=== PATIENT | male | born 1980 | race Two or more races ===

== ENCOUNTER 2016-08-21 08:32 | Inpatient (IN) | payer MEDICAID ==
[~2016-08-21] VITALS: Ht 182.9 cm; Wt 69.6 kg
[~2016-08-21 08:32] MED LIST: GAB400C PO; GLIP-115 PO; METF-316 PO
[2016-08-21] MEDS ORDERED: SODIUM CHLORIDE 0.9% 1,000 ML IVB ONE (09:11)
[2016-08-21] MEDS ORDERED: MORPHINE SULFATE 4 MG/ML SYRG IV ONE (09:15)
[2016-08-21] MEDS ORDERED: ONDANSETRON HCL 4 MG/2 ML VIAL IV ONE (09:15)
[2016-08-21 11:02] LABS: Albumin 4.2 g/dL (3.4-5.0); BUN/Creatinine Ratio 24.6; Bilirubin, Total 0.4 mg/dL (0.2-1.0); Calcium 8.9 mg/dL (8.5-10.1); Potassium 3.6 mmol/L (3.5-5.1); Total Protein 7.2 g/dL (6.4-8.2)
[2016-08-21 11:12] LABS: Basophils # (auto) 0 uL; Basophils % (auto) 0.5 % (0.0-2.0); Eosinophils # (auto) 0 uL; Hematocrit 40.5 % (41.0-53.0); Hemoglobin 13.4 g/dL (13.5-17.5); Lymphocytes # (auto) 0.7 uL; Lymphocytes % (auto) 7.6 % (10.0-50.0); Mean Corpuscular Volume 90.6 fL (80.0-100.0); Mean Platelet Volume 7.8 fL (7.4-10.4); Monocytes # (auto) 0.3 uL; Monocytes % (auto) 3.3 % (0.0-12.0); Neutrophils # (auto) 8.3 uL; Neutrophils % (auto) 88.6 % (37.0-80.0); Platelet Count (auto) 285 10^3/uL (140-450); Red Cell Distribution Width 12.4 % (11.6-16.0); White Blood Cell 9.3 10^3/uL (4.4-10.8)
[2016-08-21] MEDS ORDERED: KETOROLAC TROMETH 30 MG/ML 1ML VIAL IV ONE (11:15)
[2016-08-21] MEDS ORDERED: LORazepam 2MG/ML-1ML VIAL IV ONE (11:15)
[2016-08-21 11:49] LABS: Urine RBC None Seen /hpf (0 - 3)
[2016-08-21 12:32] LABS: Urine Bilirubin Negative (Negative); Urine Blood Negative /uL (Negative); Urine Color Yellow (Yellow); Urine Nitrite Negative (Negative); Urine Urobilinogen Normal (Negative); Urine pH 6.5 (5.0-8.0)
[2016-08-21 12:34] LABS: Urine Glucose 3+ mg/dL (Normal); Urine Ketone 3+ (Negative)
[2016-08-21] MEDS ORDERED: PIPERACILLIN-TAZOB 3.375GM 100 ML IV ONE (12:45)
[2016-08-21] MEDS ORDERED: metroNIDAZOLE 500MG/100ML 100 ML IV ONE (12:45)
[2016-08-21] MEDS ORDERED: PANTOPRAZOLE SODIUM 40 MG/10 ML VIAL IV ONE (13:00)
[2016-08-21] MEDS ORDERED: DEXTROSE (50%) 50ML SYRG IV PRN (13:45)
[2016-08-21 13:56] LABS: Lactic Acid 2.3 mmol/L (0.4-2.0)
[2016-08-21] MEDS ORDERED: TEMAZEPAM 15 MG CAP PO PRN (14:00)
[2016-08-21] MEDS ORDERED: MORPHINE SULF INJ 2 MG/ML SYRINGE 1ML IV PRN (14:00)
[2016-08-21] MEDS ORDERED: ACETAMINOPHEN 325 MG TAB PO PRN (14:00)
[2016-08-21] MEDS ORDERED: FAMOTIDINE (10MG/ML) 2ML VL IV ONE (14:00)
[2016-08-21] MEDS ORDERED: NITROGLYCERIN 0.4 MG SL TAB SL PRN (14:00)
[2016-08-21] MEDS ORDERED: DOCUSATE SOD 100 MG CAP PO PRN (14:00)
[2016-08-21 14:25] LABS: REFLEX LACTIC ACID YES OR NO YES
[2016-08-21] MEDS: MULTIPLE VITAMIN TAB PO SCH (15:27)
[2016-08-21] MEDS: DICYCLOMINE HCL 10 MG CAP PO SCH ×2 (15:27→21:11)
[2016-08-21] MEDS: SODIUM CHLORIDE 0.9% 1,000 ML IV SCH (15:27)
[2016-08-21] MEDS: busPIRone HCL 10 MG TAB PO SCH ×2 (15:27→21:11)
[2016-08-21 17:20] LABS: INR 1.05 (0.9-1.15); Prothrombin Time 10.8 sec (9.37-12.3)
[2016-08-21] MEDS: InsuLIN REG 1unit/0.01ml Soln (100units/ml) SC SCH ×2 (18:29→21:24)
[2016-08-21] MEDS: ACCU-CHEK COMFORT CURVE STRIP VI SCH ×2 (18:29→21:24)
[2016-08-21] MEDS: metFORMIN HYDROCHLORIDE 500 MG TAB PO SCH (18:32)
[2016-08-21] MEDS: METOCLOPRAMIDE HCL 10 MG TAB PO SCH ×2 (18:32→21:11)
[2016-08-21 18:56] LABS: Hematocrit 37.3 % (41.0-53.0); Hemoglobin 12.3 g/dL (13.5-17.5)
[2016-08-21] MEDS: MORPHINE SULF INJ 2 MG/ML SYRINGE 1ML IV PRN (19:29)
[2016-08-21] MEDS: ONDANSETRON HCL 4 MG/2 ML VIAL IV PRN (19:29)
[2016-08-21 20:30] VITALS: BP 159/84
[2016-08-21] MEDS: PANTOPRAZOLE SODIUM 40 MG/10 ML VIAL IV SCH (21:11)
[2016-08-21] MEDS: traZODone HCL 50 MG TAB PO SCH (21:11)
[2016-08-21] MEDS: HYDROcodone-ACET 5/325MG TAB PO PRN (21:24)
[2016-08-21 22:00] VITALS: BP 159/84
[2016-08-21] MEDS ORDERED: NORTRIPTYLINE HCL 10 MG CAP PO SCH (22:00)
[2016-08-21] MEDS ORDERED: FAMOTIDINE (10MG/ML) 2ML VL IV SCH (22:00)
[2016-08-22] MEDS: MORPHINE SULF INJ 2 MG/ML SYRINGE 1ML IV PRN ×2 (01:37→05:47)
[2016-08-22] MEDS: ONDANSETRON HCL 4 MG/2 ML VIAL IV PRN ×2 (01:37→05:48)
[2016-08-22] MEDS ORDERED: TRAZ50TA2 PO (03:14)
[2016-08-22] MEDS ORDERED: BUSP7.5T4 PO (03:14)
[2016-08-22] MEDS ORDERED: RANI150C11 PO (03:14)
[2016-08-22] MEDS ORDERED: [UNRECOGNIZED DRUG - CODE] PO (03:14)
[2016-08-22] MEDS ORDERED: DICY10CA55 PO (03:14)
[2016-08-22] MEDS ORDERED: NORT25CA PO (03:14)
[2016-08-22] MEDS: HYDROcodone-ACET 5/325MG TAB PO PRN (04:58)
[2016-08-22 05:30] VITALS: BP 149/94
[2016-08-22] MEDS: DICYCLOMINE HCL 10 MG CAP PO SCH ×3 (05:47→22:20)
[2016-08-22] MEDS: METOCLOPRAMIDE HCL 10 MG TAB PO SCH (05:47)
[2016-08-22] MEDS: busPIRone HCL 10 MG TAB PO SCH ×3 (05:47→22:20)
[2016-08-22] MEDS: ACCU-CHEK COMFORT CURVE STRIP VI SCH ×3 (06:30→22:21)
[2016-08-22 06:40] LABS: Basophils # (auto) 0 uL; Basophils % (auto) 0.3 % (0.0-2.0); Eosinophils # (auto) 0 uL; Eosinophils % (auto) 0.1 % (0.0-7.0); Hematocrit 38.1 % (41.0-53.0); Hemoglobin 12.4 g/dL (13.5-17.5); Lymphocytes # (auto) 1.9 uL; Lymphocytes % (auto) 14.3 % (10.0-50.0); Mean Corpuscular Hemoglobin 29.7 pg (28.0-32.0); Mean Corpuscular Hgb Conc. 32.7 g/dL (32.0-36.0); Mean Corpuscular Volume 90.9 fL (80.0-100.0); Mean Platelet Volume 7.9 fL (7.4-10.4); Monocytes % (auto) 7.8 % (0.0-12.0); Neutrophils # (auto) 10.1 uL; Neutrophils % (auto) 77.5 % (37.0-80.0); Platelet Count (auto) 296 10^3/uL (140-450); Red Cell Distribution Width 13.3 % (11.6-16.0); White Blood Cell 13.1 10^3/uL (4.4-10.8)
[2016-08-22] MEDS: metFORMIN HYDROCHLORIDE 500 MG TAB PO SCH ×2 (07:00→18:00)
[2016-08-22] MEDS: InsuLIN REG 1unit/0.01ml Soln (100units/ml) SC SCH ×3 (07:00→22:28)
[2016-08-22 07:04] LABS: Calcium 8.7 mg/dL (8.5-10.1); Potassium 3.2 mmol/L (3.5-5.1)
[2016-08-22 07:06] LABS: Albumin 4.1 g/dL (3.4-5.0); BUN/Creatinine Ratio 15.9
[2016-08-22 07:09] LABS: Bilirubin, Total 0.8 mg/dL (0.2-1.0); Total Protein 7.1 g/dL (6.4-8.2)
[2016-08-22] MEDS ORDERED: fentaNYL CITRATE 100 MCG/2 ML VL ONE (08:26)
[2016-08-22] MEDS ORDERED: SODIUM CHLORIDE LOCK 10 ML ONE (08:26)
[2016-08-22] MEDS ORDERED: diphenhdrAMINE HCL 50 MG/1 ML VL ONE (08:26)
[2016-08-22] MEDS ORDERED: LIDOCAINE VISCOUS 2% 15ML UD ONE (08:26)
[2016-08-22] MEDS ORDERED: MIDAZOLAM HCL 5 MG/ML-1ML VIAL ONE (08:26)
[2016-08-22 09:00] VITALS: BP 124/89
[2016-08-22] MEDS ORDERED: PROMETHAZINE HCL 25 MG/ML 1ML ONE (09:39)
[2016-08-22] MEDS: PANTOPRAZOLE SODIUM 40 MG/10 ML VIAL IV SCH (09:56)
[2016-08-22] MEDS: PROMETHAZINE HCL 25 MG/ML 1ML IV PRN ×2 (09:56→15:10)
[2016-08-22] MEDS: MULTIPLE VITAMIN TAB PO SCH (10:05)
[2016-08-22] MEDS: SODIUM CHLORIDE 0.9% 1,000 ML IV SCH ×2 (11:51→23:22)
[2016-08-22 13:00] VITALS: BP 151/104
[2016-08-22] MEDS: METOCLOPRAMIDE HCL 5MG/ml INJ 2ml VIAL IV SCH ×2 (13:33→22:20)
[2016-08-22 15:00] VITALS: BP 127/82
[2016-08-22] MEDS: HYDROmorphone HCL 2 MG/ML VL IV PRN ×3 (16:27→23:32)
[2016-08-22 22:00] VITALS: BP 105/74
[2016-08-22] MEDS: traZODone HCL 50 MG TAB PO SCH (22:20)
[2016-08-23] MEDS: HYDROmorphone HCL 2 MG/ML VL IV PRN ×6 (02:30→21:29)
[2016-08-23 05:30] VITALS: BP 134/70
[2016-08-23] MEDS: busPIRone HCL 10 MG TAB PO SCH ×3 (05:54→21:28)
[2016-08-23] MEDS: metFORMIN HYDROCHLORIDE 500 MG TAB PO SCH ×2 (05:55→18:00)
[2016-08-23] MEDS: ACCU-CHEK COMFORT CURVE STRIP VI SCH ×4 (05:55→22:12)
[2016-08-23] MEDS: DICYCLOMINE HCL 10 MG CAP PO SCH ×3 (05:55→21:28)
[2016-08-23] MEDS: InsuLIN REG 1unit/0.01ml Soln (100units/ml) SC SCH ×4 (06:19→22:21)
[2016-08-23 06:20] LABS: Basophils # (auto) 0 uL; Basophils % (auto) 0.5 % (0.0-2.0); Eosinophils # (auto) 0 uL; Eosinophils % (auto) 0.1 % (0.0-7.0); Hematocrit 33.9 % (41.0-53.0); Lymphocytes # (auto) 1.6 uL; Mean Corpuscular Hemoglobin 29.8 pg (28.0-32.0); Mean Corpuscular Hgb Conc. 32.4 g/dL (32.0-36.0); Mean Platelet Volume 7.9 fL (7.4-10.4); Monocytes # (auto) 0.9 uL; Monocytes % (auto) 9.3 % (0.0-12.0); Neutrophils # (auto) 6.8 uL; Neutrophils % (auto) 73.1 % (37.0-80.0); Platelet Count (auto) 257 10^3/uL (140-450); Red Cell Distribution Width 13.1 % (11.6-16.0); White Blood Cell 9.3 10^3/uL (4.4-10.8)
[2016-08-23 06:36] LABS: Albumin 3.5 g/dL (3.4-5.0); Calcium 8.2 mg/dL (8.5-10.1)
[2016-08-23 06:41] LABS: Bilirubin, Total 0.6 mg/dL (0.2-1.0); Total Protein 6.2 g/dL (6.4-8.2)
[2016-08-23 08:48] VITALS: BP 134/87
[2016-08-23] MEDS: MULTIPLE VITAMIN TAB PO SCH (10:16)
[2016-08-23] MEDS: METOCLOPRAMIDE HCL 5MG/ml INJ 2ml VIAL IV SCH ×2 (10:16→21:28)
[2016-08-23] MEDS: PROMETHAZINE HCL 25 MG/ML 1ML IV PRN (10:16)
[2016-08-23] MEDS: PANTOPRAZOLE 40 MG TAB PO SCH (10:17)
[2016-08-23 11:51] VITALS: BP 130/79
[2016-08-23 16:29] VITALS: BP 138/89
[2016-08-23] MEDS: SODIUM CHLORIDE 0.9% 1,000 ML IV SCH (16:54)
[2016-08-23] MEDS: ONDANSETRON HCL 4 MG/2 ML VIAL IV PRN (18:06)
[2016-08-23] MEDS: HYDROcodone-ACET 5/325MG TAB PO PRN (20:09)
[2016-08-23] MEDS: traZODone HCL 50 MG TAB PO SCH (21:30)
[2016-08-23 21:52] VITALS: BP 140/95
[2016-08-24] MEDS: HYDROmorphone HCL 2 MG/ML VL IV PRN ×7 (00:24→21:20)
[2016-08-24 05:34] VITALS: BP 133/84
[2016-08-24] MEDS: busPIRone HCL 10 MG TAB PO SCH ×3 (06:02→21:21)
[2016-08-24] MEDS: DICYCLOMINE HCL 10 MG CAP PO SCH ×3 (06:02→21:21)
[2016-08-24] MEDS: metFORMIN HYDROCHLORIDE 500 MG TAB PO SCH ×2 (06:03→17:58)
[2016-08-24] MEDS: InsuLIN REG 1unit/0.01ml Soln (100units/ml) SC SCH ×4 (06:28→21:20)
[2016-08-24] MEDS: ACCU-CHEK COMFORT CURVE STRIP VI SCH ×4 (06:28→21:20)
[2016-08-24] MEDS: SODIUM CHLORIDE 0.9% 1,000 ML IV SCH ×2 (07:38→21:22)
[2016-08-24 08:30] VITALS: BP 137/87
[2016-08-24] MEDS: PANTOPRAZOLE 40 MG TAB PO SCH (09:11)
[2016-08-24] MEDS: METOCLOPRAMIDE HCL 5MG/ml INJ 2ml VIAL IV SCH ×2 (09:11→21:22)
[2016-08-24] MEDS: MULTIPLE VITAMIN TAB PO SCH (09:11)
[2016-08-24 13:30] VITALS: BP 138/95
[2016-08-24 16:36] VITALS: BP 150/103
[2016-08-24] MEDS: traZODone HCL 50 MG TAB PO SCH (21:21)
[2016-08-24 22:00] VITALS: BP 147/96
[2016-08-25] MEDS: HYDROmorphone HCL 2 MG/ML VL IV PRN ×4 (00:33→12:50)
[2016-08-25 05:32] VITALS: BP 139/92
[2016-08-25] MEDS: DICYCLOMINE HCL 10 MG CAP PO SCH ×2 (06:10→14:21)
[2016-08-25] MEDS: busPIRone HCL 10 MG TAB PO SCH ×2 (06:10→14:21)
[2016-08-25] MEDS: ACCU-CHEK COMFORT CURVE STRIP VI SCH ×2 (06:11→11:30)
[2016-08-25] MEDS: metFORMIN HYDROCHLORIDE 500 MG TAB PO SCH (06:46)
[2016-08-25] MEDS: InsuLIN REG 1unit/0.01ml Soln (100units/ml) SC SCH ×2 (06:51→11:30)
[2016-08-25] MEDS: PROMETHAZINE HCL 25 MG/ML 1ML IV PRN (06:52)
[2016-08-25 07:30] VITALS: BP 150/69
[2016-08-25] MEDS: METOCLOPRAMIDE HCL 5MG/ml INJ 2ml VIAL IV SCH (09:49)
[2016-08-25] MEDS: MULTIPLE VITAMIN TAB PO SCH (09:49)
[2016-08-25] MEDS: PANTOPRAZOLE 40 MG TAB PO SCH (09:49)
[2016-08-25 11:30] VITALS: BP 133/94
[2016-08-25 15:15] VITALS: BP 133/82
== END 2016-08-25 15:37 | disposition home or self-care (01) | DRG 241 ==
LOC: EDBD 08:32 → ER 08:32 → EDUNIT# 08:32 → TELE 08:33 → TELE-WESTW 20:10 → WEST WING 08-24 05:44
PROVIDERS: ADMIT Internal Medicine; ATTEND Internal Medicine
PROC: 0DJ08ZZ Inspection of Upper Intestinal Tract, Via Natural or Artificial Opening Endoscopic (ICD-10-PCS; principal; 2016-08-22 12:08)
DX: K29.00 Acute gastritis without bleeding (principal); K92.0 Hematemesis; K31.84 Gastroparesis; E11.43 Type 2 diabetes mellitus with diabetic autonomic (poly)neuropathy; K27.9 Peptic ulcer, site unspecified, unspecified as acute or chronic, without hemorrhage or perforation; I10 Essential (primary) hypertension; D63.8 Anemia in other chronic diseases classified elsewhere; F32.9 Major depressive disorder, single episode, unspecified; F41.9 Anxiety disorder, unspecified; N20.0 Calculus of kidney; F12.90 Cannabis use, unspecified, uncomplicated; Z90.49 Acquired absence of other specified parts of digestive tract; Z79.899 Other long term (current) drug therapy
CPT/HCPCS: 36415; 43235; 74176; 80053; 81001; 82150; 82962; 83036; 83605; 83690; 84484; 85014; 85018; 85025; 85610; 87040; 96361; 96365; 96366; 96368; 96375; C9113; J1815; J1885; J2250; J2405; J2543; J3490

== ENCOUNTER 2016-09-24 04:26 | Inpatient (IN) | payer MEDICAID ==
[~2016-09-24] VITALS: Ht 182.9 cm; Wt 68.0 kg
[~2016-09-24 04:26] MED LIST changes: +BUSP7.5T4 PO; +DICY10CA55 PO; +NORT25CA PO; +RANI150C11 PO; +TRAZ50TA2 PO; +[UNRECOGNIZED DRUG - CODE] PO
[2016-09-24 06:25] LABS: Hematocrit 45.4 % (41.0-53.0); Hemoglobin 14.8 g/dL (13.5-17.5); Mean Corpuscular Hgb Conc. 32.5 g/dL (32.0-36.0); Mean Corpuscular Volume 92.2 fL (80.0-100.0); Mean Platelet Volume 8.5 fL (7.4-10.4); Platelet Count (auto) 313 10^3/uL (140-450); Red Cell Distribution Width 12.6 % (11.6-16.0); SUSPECT VIEW TRANSMISSION; White Blood Cell 19.5 10^3/uL (4.4-10.8)
[2016-09-24 06:33] LABS: Metamyelocytes % 0; Myelocytes % 0; Promyelocytes % 0; Reactive Lymphocytes 0
[2016-09-24 06:51] LABS: BUN/Creatinine Ratio 21.5; Bilirubin, Total 0.6 mg/dL (0.2-1.0); Calcium 9.8 mg/dL (8.5-10.1); Potassium 3.7 mmol/L (3.5-5.1); Total Protein 8.7 g/dL (6.4-8.2)
[2016-09-24] MEDS ORDERED: InsuLIN REG 1unit/0.01ml Soln (100units/ml) IV ONE (07:45)
[2016-09-24] MEDS ORDERED: PANTOPRAZOLE SODIUM 40 MG/10 ML VIAL IV ONE (07:45)
[2016-09-24] MEDS ORDERED: ONDANSETRON HCL 4 MG/2 ML VIAL IV ONE (07:45)
[2016-09-24] MEDS ORDERED: HYDROmorphone HCL 2 MG/ML VL IV ONE (07:45)
[2016-09-24] MEDS ORDERED: SODIUM CHLORIDE 0.9% 1,000 ML IV ONE (07:45)
[2016-09-24] MEDS ORDERED: cefTRIAXone 1GM/50ML D5W 50 ML IV ONE (08:00)
[2016-09-24 08:16] LABS: Platelet Estimate Adequate; RBC Morphology Normal
[2016-09-24] MEDS ORDERED: metFORMIN HYDROCHLORIDE 500 MG TAB PO ONE (10:30)
[2016-09-24] MEDS ORDERED: ACETAMINOPHEN 325 MG TAB PO PRN (10:30)
[2016-09-24] MEDS ORDERED: TEMAZEPAM 15 MG CAP PO PRN (10:30)
[2016-09-24] MEDS ORDERED: HYDROcodone-ACET 5/325MG TAB PO PRN (10:30)
[2016-09-24] MEDS ORDERED: DOCUSATE SOD 100 MG CAP PO PRN (10:30)
[2016-09-24] MEDS ORDERED: DEXTROSE (50%) 50ML SYRG IV PRN (10:30)
[2016-09-24] MEDS: SODIUM CHLORIDE 0.9% 1,000 ML IV SCH ×2 (10:34→20:11)
[2016-09-24] MEDS: DICYCLOMINE HCL 10 MG CAP PO SCH ×2 (10:43→16:41)
[2016-09-24] MEDS: FAMOTIDINE 20 MG TAB PO SCH ×2 (10:43→21:11)
[2016-09-24] MEDS: ACCU-CHEK COMFORT CURVE STRIP VI SCH ×3 (11:30→22:00)
[2016-09-24] MEDS: InsuLIN REG 1unit/0.01ml Soln (100units/ml) SC SCH ×2 (11:30→17:00)
[2016-09-24] MEDS: METOCLOPRAMIDE HCL 5MG/ml INJ 2ml VIAL IV SCH ×2 (12:00→18:00)
[2016-09-24] MEDS: MORPHINE SULF INJ 2 MG/ML SYRINGE 1ML IV PRN ×3 (12:48→21:14)
[2016-09-24] MEDS: ONDANSETRON HCL 4 MG/2 ML VIAL IV PRN ×2 (12:49→21:08)
[2016-09-24] MEDS: GABAPENTIN 300 MG CAP PO SCH ×2 (14:00→21:11)
[2016-09-24 15:30] VITALS: BP 149/89
[2016-09-24] MEDS: metFORMIN HYDROCHLORIDE 500 MG TAB PO SCH (16:41)
[2016-09-24] MEDS: glipiZIDE 5 MG TAB PO SCH (18:00)
[2016-09-24] MEDS: busPIRone HCL 10 MG TAB PO SCH (21:09)
[2016-09-24] MEDS: DONNATAL 5ml ORAL Elix (BELLADONNA ALK-PHENOBARB) PO SCH (21:31)
[2016-09-24 22:00] VITALS: BP 113/64
[2016-09-24] MEDS ORDERED: InsuLIN REG 1unit/0.01ml Soln (100units/ml) SC SCH (22:00)
[2016-09-24] MEDS ORDERED: NORTRIPTYLINE HCL 10 MG CAP PO SCH (22:00)
[2016-09-24] MEDS ORDERED: traZODone HCL 50 MG TAB PO SCH (22:00)
[2016-09-25] MEDS: METOCLOPRAMIDE HCL 5MG/ml INJ 2ml VIAL IV SCH ×3 (00:06→12:00)
[2016-09-25] MEDS: MORPHINE SULF INJ 2 MG/ML SYRINGE 1ML IV PRN ×3 (01:38→10:15)
[2016-09-25] MEDS: ONDANSETRON HCL 4 MG/2 ML VIAL IV PRN ×4 (01:38→10:15)
[2016-09-25] MEDS: SODIUM CHLORIDE 0.9% 1,000 ML IV SCH ×2 (03:08→11:30)
[2016-09-25 05:00] VITALS: BP 148/87
[2016-09-25] MEDS ORDERED: MORPHINE SULFATE 4 MG/ML SYRG ONE (05:25)
[2016-09-25] MEDS: DONNATAL 5ml ORAL Elix (BELLADONNA ALK-PHENOBARB) PO SCH ×2 (05:40→14:00)
[2016-09-25] MEDS: GABAPENTIN 300 MG CAP PO SCH ×2 (05:46→14:00)
[2016-09-25] MEDS: metFORMIN HYDROCHLORIDE 500 MG TAB PO SCH (06:32)
[2016-09-25] MEDS: DICYCLOMINE HCL 10 MG CAP PO SCH ×2 (06:32→11:31)
[2016-09-25] MEDS: glipiZIDE 5 MG TAB PO SCH (06:38)
[2016-09-25] MEDS: InsuLIN REG 1unit/0.01ml Soln (100units/ml) SC SCH ×2 (06:46→11:30)
[2016-09-25] MEDS: ACCU-CHEK COMFORT CURVE STRIP VI SCH ×3 (07:12→11:31)
[2016-09-25 07:44] LABS: Basophils # (auto) 0 uL; Basophils % (auto) 0.3 % (0.0-2.0); Eosinophils # (auto) 0 uL; Hematocrit 37.5 % (41.0-53.0); Hemoglobin 12.2 g/dL (13.5-17.5); Lymphocytes # (auto) 1.2 uL; Lymphocytes % (auto) 10.4 % (10.0-50.0); Mean Corpuscular Hgb Conc. 32.5 g/dL (32.0-36.0); Mean Corpuscular Volume 92.1 fL (80.0-100.0); Monocytes # (auto) 0.8 uL; Monocytes % (auto) 7.2 % (0.0-12.0); Neutrophils # (auto) 9.4 uL; Neutrophils % (auto) 82.1 % (37.0-80.0); Platelet Count (auto) 251 10^3/uL (140-450); Red Cell Distribution Width 12.5 % (11.6-16.0); White Blood Cell 11.4 10^3/uL (4.4-10.8)
[2016-09-25 08:00] LABS: Urine Bilirubin Negative (Negative); Urine Blood Negative /uL (Negative); Urine Color Yellow (Yellow); Urine Hyaline Cast FEW /lpf (0 - 2); Urine Mucus FEW (None Seen); Urine Nitrite Negative (Negative); Urine RBC 1 /hpf (0 - 3); Urine Squamous Epithelial Cell FEW /hpf (<5); Urine Urobilinogen Normal (Negative); Urine pH 5.5 (5.0-8.0)
[2016-09-25 08:01] LABS: Urine Glucose 4+ mg/dL (Normal); Urine Ketone 1+ (Negative)
[2016-09-25 08:26] LABS: BUN/Creatinine Ratio 23.7; Bilirubin, Total 0.5 mg/dL (0.2-1.0); Calcium 8.8 mg/dL (8.5-10.1); Potassium 3.6 mmol/L (3.5-5.1); Total Protein 6.9 g/dL (6.4-8.2)
[2016-09-25 09:00] VITALS: BP 120/89
[2016-09-25] MEDS ORDERED: PANTOPRAZOLE SODIUM 40 MG/10 ML VIAL IV SCH (10:00)
[2016-09-25] MEDS ORDERED: MULTIPLE VITAMIN TAB PO SCH (10:00)
[2016-09-25] MEDS: busPIRone HCL 10 MG TAB PO SCH (11:30)
[2016-09-25 12:09] VITALS: BP 120/89
[2016-09-25 13:00] VITALS: BP 109/84
== END 2016-09-25 16:45 | disposition home or self-care (01) | DRG 241 ==
LOC: ER 04:31 → OVERFLOW 04:32 → EAST 11:03 → WEST WING 15:46
PROVIDERS: ADMIT Internal Medicine; ATTEND Internal Medicine
DX: K29.70 Gastritis, unspecified, without bleeding (principal); E11.21 Type 2 diabetes mellitus with diabetic nephropathy; E11.65 Type 2 diabetes mellitus with hyperglycemia; K31.84 Gastroparesis; E87.1 Hypo-osmolality and hyponatremia; K27.9 Peptic ulcer, site unspecified, unspecified as acute or chronic, without hemorrhage or perforation; E86.0 Dehydration; N20.0 Calculus of kidney; F41.9 Anxiety disorder, unspecified; N18.2 Chronic kidney disease, stage 2 (mild); D72.829 Elevated white blood cell count, unspecified; E11.22 Type 2 diabetes mellitus with diabetic chronic kidney disease; I12.9 Hypertensive chronic kidney disease with stage 1 through stage 4 chronic kidney disease, or unspecified chronic kidney disease; K58.9 Irritable bowel syndrome, unspecified; K21.9 Gastro-esophageal reflux disease without esophagitis; Z90.49 Acquired absence of other specified parts of digestive tract; F12.10 Cannabis abuse, uncomplicated; F19.10 Other psychoactive substance abuse, uncomplicated
CPT/HCPCS: 36415; 71020; 74176; 80053; 81001; 82150; 82962; 83036; 83605; 83690; 84443; 85007; 85025; 85027; 87040; 87086; 96361; 96365; 96375; 99291; C9113; G0434; J0696; J1815; J2405

== ENCOUNTER 2017-02-25 14:08 | Emergency (ER) | payer MEDICAID ==
[~2017-02-25] VITALS: Ht 177.8 cm; Wt 77.1 kg
[~2017-02-25 14:08] MED LIST changes: -METF-316 PO; +METF-372 PO
[2017-02-25 14:50] LABS: Basophils # (auto) 0 uL; CONDITION Y; Eosinophils # (auto) 0 uL; Hematocrit 43.1 % (41.0-53.0); Hemoglobin 14.8 g/dL (13.5-17.5); Lymphocytes # (auto) 0.8 uL; Lymphocytes % (auto) 5.1 % (10.0-50.0); Mean Corpuscular Hgb Conc. 34.3 g/dL (32.0-36.0); Mean Corpuscular Volume 90.5 fL (80.0-100.0); Mean Platelet Volume 8.1 fL (7.4-10.4); Monocytes # (auto) 0.7 uL; Monocytes % (auto) 4.4 % (0.0-12.0); Neutrophils # (auto) 13.6 uL; Neutrophils % (auto) 90.5 % (37.0-80.0); Platelet Count (auto) 300 10^3/uL (140-450); Red Cell Distribution Width 12.5 % (11.6-16.0); White Blood Cell 15.1 10^3/uL (4.4-10.8)
[2017-02-25 15:09] LABS: Albumin 4.9 g/dL (3.4-5.0); BUN/Creatinine Ratio 27.9; Bilirubin, Total 0.6 mg/dL (0.2-1.0); Potassium 3.6 mmol/L (3.5-5.1); Total Protein 8.7 g/dL (6.4-8.2)
[2017-02-25] MEDS ORDERED: PROMETHAZINE HCL 25 MG/ML 1ML IM ONE (17:30)
[2017-02-25] MEDS ORDERED: SODIUM CHLORIDE 0.9% 2,000 ML IV ONE (17:30)
[2017-02-25] MEDS ORDERED: NALBUPHINE HCL 10 MG/1ml INJECTION IV ONE (17:30)
[2017-02-25] MEDS ORDERED: InsuLIN REG 1unit/0.01ml Soln (100units/ml) IV ONE (17:45)
[2017-02-25 18:34] VITALS: BP 153/99
== END 2017-02-25 19:53 | disposition home or self-care (01) ==
LOC: EDBD 14:08 → ER 14:08
DX: G43.A0 Cyclical vomiting, in migraine, not intractable (principal); K31.84 Gastroparesis; E11.9 Type 2 diabetes mellitus without complications; I10 Essential (primary) hypertension; F12.10 Cannabis abuse, uncomplicated; F15.10 Other stimulant abuse, uncomplicated; Z87.442 Personal history of urinary calculi
CPT/HCPCS: 36415; 80053; 82962; 85025; 96361; 96372; 96374; 96375; 99285; J2300; J2550

== ENCOUNTER 2017-09-08 07:47 | Emergency (ER) | payer MEDICAID ==
[~2017-09-08] VITALS: Ht 182.9 cm; Wt 83.9 kg
[2017-09-08 09:14] LABS: Basophils # (auto) 0.1 uL; Basophils % (auto) 0.7 % (0.0-2.0); Eosinophils # (auto) 0.1 uL; Eosinophils % (auto) 0.7 % (0.0-7.0); Hematocrit 39.6 % (41.0-53.0); Hemoglobin 13.4 g/dL (13.5-17.5); Lymphocytes # (auto) 1.3 uL; Lymphocytes % (auto) 16.7 % (10.0-50.0); Mean Corpuscular Hemoglobin 30.8 pg (28.0-32.0); Mean Corpuscular Hgb Conc. 33.9 g/dL (32.0-36.0); Mean Corpuscular Volume 90.9 fL (80.0-100.0); Monocytes # (auto) 0.7 uL; Monocytes % (auto) 8.6 % (0.0-12.0); Neutrophils # (auto) 5.7 uL; Neutrophils % (auto) 73.3 % (37.0-80.0); Platelet Count (auto) 300 10^3/uL (140-450); Red Blood Cells 4.36 10^6/uL (4.5-5.90); Red Cell Distribution Width 12.9 % (11.8-14.3); White Blood Cell 7.8 10^3/uL (4.4-10.8)
[2017-09-08 09:33] LABS: BUN/Creatinine Ratio 10.9; Potassium 3.3 mmol/L (3.5-5.1)
[2017-09-08 09:36] LABS: Bilirubin, Total 0.7 mg/dL (0.2-1.0); Total Protein 7.3 g/dL (6.4-8.2)
[2017-09-08] MEDS ORDERED: KETOROLAC TROMETH 60MG/2ML VIAL IM ONE (10:15)
[2017-09-08 10:53] VITALS: BP 148/95
[2017-09-08 10:57] LABS: Alcohol, Urine < 3.0 mg/dL (0-5); Amphetamine Screen, Urine NEGATIVE (NEGATIVE); Barbiturate Scree,Urine NEGATIVE (NEGATIVE); Benzodiazephine Screen, Urine NEGATIVE (NEGATIVE); Cannabinoid Screen, Urine POSITIVE (NEGATIVE); Cocaine Screen, Urine NEGATIVE (NEGATIVE); Opiate Scree,Urine NEGATIVE (NEGATIVE); Phencyclidine Screen, Urine NEGATIVE (NEGATIVE)
[2017-09-08 11:13] LABS: Urine Amorphous Crystal FEW /hpf (None Seen); Urine Bacteria NONE SEEN /hpf (None Seen); Urine Blood Negative /uL (Negative); Urine Mucus FEW (None Seen); Urine Specific Gravity 1.013 (1.001-1.035); Urine Sperm PRESENT /hpf (None Seen); Urine WBC 2 /hpf (0 - 3)
== END 2017-09-08 10:55 | disposition home or self-care (01) ==
LOC: ER 07:47
DX: N20.0 Calculus of kidney (principal); Z90.49 Acquired absence of other specified parts of digestive tract; Z79.899 Other long term (current) drug therapy; Z79.891 Long term (current) use of opiate analgesic
CPT/HCPCS: 36415; 74176; 80053; 80307; 81001; 83690; 85025; 96372; 99285; J1885; J7030

== ENCOUNTER 2018-03-14 22:07 | Inpatient (IN) | payer MEDICAID ==
[~2018-03-14] VITALS: Ht 175.3 cm; Wt 90.2 kg
[2018-03-15] MEDS ORDERED: SODIUM CHLORIDE 0.9% 1,000 ML IV ONE ×5 (02:45→06:00)
[2018-03-15] MEDS ORDERED: ONDANSETRON HCL 4 MG/2 ML VIAL IV ONE (02:45)
[2018-03-15 03:07] LABS: Albumin 3.6 g/dL (3.4-5.0); BUN/Creatinine Ratio 13.3; Calcium 8.1 mg/dL (8.5-10.1)
[2018-03-15 03:09] LABS: Bilirubin, Total 0.8 mg/dL (0.2-1.0); Total Protein 7.3 g/dL (6.4-8.2)
[2018-03-15 03:17] LABS: INR 0.94 (0.9-1.15); Partial Thromboplastin Time 23.4 sec (23.78-33.04); Prothrombin Time 10.1 sec (9.27-12.13)
[2018-03-15 03:21] LABS: Potassium 2.7 mmol/L (3.5-5.1)
[2018-03-15 03:35] LABS: Hematocrit 45.9 % (41.0-53.0); Hemoglobin 15.7 g/dL (13.5-17.5); Mean Corpuscular Hemoglobin 30.4 pg (28.0-32.0); Mean Corpuscular Hgb Conc. 34.1 g/dL (32.0-36.0); Mean Corpuscular Volume 88.9 fL (80.0-100.0); Platelet Count (auto) 346 10^3/uL (140-450); Red Blood Cells 5.16 10^6/uL (4.5-5.90); Red Cell Distribution Width 12.4 % (11.8-14.3); White Blood Cell 14.3 10^3/uL (4.4-10.8)
[2018-03-15 03:41] LABS: Band Neutrophils % (manual) 0; Basophils % (manual) 0 (0.0-2.0); Blast Cells 0; Metamyelocytes % 0; Myelocytes % 0; Promyelocytes % 0; Reactive Lymphocytes 0
[2018-03-15 04:06] LABS: Eosinophils % (manual) 1 (0-7); Lymphocytes % (manual) 10 (10.0-50.0); Monocytes % (manual) 4 (0-12)
[2018-03-15] MEDS ORDERED: InsuLIN REG 1unit/0.01ml Soln (100units/ml) IV ONE ×2 (04:30→11:30)
[2018-03-15] MEDS ORDERED: PROMETHAZINE HCL 25 MG/ML 1ML IV ONE ×2 (04:30)
[2018-03-15] MEDS ORDERED: POTASSIUM CHL 20 Meq TABLET PO ONE (05:30)
[2018-03-15] MEDS ORDERED: ACETAMINOPHEN 500 MG TAB PO PRN (06:00)
[2018-03-15] MEDS ORDERED: MORPHINE SULF INJ 2 MG/ML SYRINGE 1ML IV PRN ×2 (06:00→06:45)
[2018-03-15] MEDS ORDERED: HYDROcodone-ACET 5/325MG TAB PO PRN (06:00)
[2018-03-15] MEDS ORDERED: DEXTROSE (50%) 50ML SYRG IV PRN ×2 (06:15→13:30)
[2018-03-15] MEDS: POTASSIUM CHL 20MEQ/100ML 100 ML IV SCH ×6 (06:43→22:49)
[2018-03-15] MEDS ORDERED: NITROGLYCERIN 0.4 MG SL TAB SL PRN (06:45)
[2018-03-15 06:48] LABS: Amylase 29 U/L (25-115); Lipase 98 U/L (73-393)
[2018-03-15] MEDS: cefTRIAXone 1GM/10ml IVPUSH 10 ML IV SCH (07:43)
[2018-03-15] MEDS: PANTOPRAZOLE 40 MG/10 ML VIAL IV SCH (07:43)
[2018-03-15 08:50] VITALS: BP 134/80
[2018-03-15] MEDS: metroNIDAZOLE 500MG/100ML 100 ML IV SCH ×2 (09:22→16:35)
[2018-03-15] MEDS ORDERED: METO-281 PO (09:40)
[2018-03-15] MEDS ORDERED: SODIUM CHLORIDE 0.9% 1,000 ML IV SCH (11:00)
[2018-03-15] MEDS ORDERED: InsuLIN REG 1unit/0.01ml Soln (100units/ml) ONE (11:04)
[2018-03-15 11:17] LABS: BUN/Creatinine Ratio 14.1; Calcium 7.7 mg/dL (8.5-10.1)
[2018-03-15 11:20] LABS: Potassium 2.3 mmol/L (3.5-5.1)
[2018-03-15] MEDS: METOCLOPRAMIDE HCL 5MG/ml INJ 2ml VIAL IV PRN ×3 (11:31→20:24)
[2018-03-15] MEDS ORDERED: D5W/SOD CHLO 0.9% 1,000 ML IV SCH (11:45)
[2018-03-15 12:00] VITALS: BP 143/88
[2018-03-15] MEDS ORDERED: ACCU-CHEK COMFORT CURVE STRIP VI SCH ×2 (12:00)
[2018-03-15] MEDS ORDERED: InsuLIN REG 1unit/0.01ml Soln (100units/ml) SC SCH (12:00)
[2018-03-15 12:36] LABS: BUN/Creatinine Ratio 9.8; Calcium 7.7 mg/dL (8.5-10.1)
[2018-03-15 12:44] LABS: Potassium 2.4 mmol/L (3.5-5.1)
[2018-03-15 13:50] LABS: Urine Amorphous Crystal FEW /hpf (None Seen); Urine Bacteria FEW /hpf (None Seen); Urine Blood Negative /uL (Negative); Urine Specific Gravity 1.024 (1.001-1.035); Urine WBC <1 /hpf (0 - 3)
[2018-03-15 14:05] LABS: Alcohol, Urine < 3.0 mg/dL (0-5); Amphetamine Screen, Urine NEGATIVE (NEGATIVE); Barbiturate Scree,Urine NEGATIVE (NEGATIVE); Benzodiazephine Screen, Urine NEGATIVE (NEGATIVE); Cannabinoid Screen, Urine POSITIVE (NEGATIVE); Cocaine Screen, Urine NEGATIVE (NEGATIVE); Opiate Scree,Urine NEGATIVE (NEGATIVE); Phencyclidine Screen, Urine NEGATIVE (NEGATIVE)
[2018-03-15] MEDS: KETOROLAC TROMETH 30 MG/ML 1ML VIAL IV PRN ×2 (14:31→18:40)
[2018-03-15 14:44] LABS: BUN/Creatinine Ratio 10.5; Calcium 7.7 mg/dL (8.5-10.1); Potassium 3.2 mmol/L (3.5-5.1)
[2018-03-15 16:00] VITALS: BP 146/80
[2018-03-15] MEDS: D5W/SOD CHLO 0.9% 1,000 ML IV SCH (16:35)
[2018-03-15] MEDS: ACCU-CHEK COMFORT CURVE STRIP VI SCH ×2 (16:46→20:13)
[2018-03-15] MEDS: InsuLIN REG 1unit/0.01ml Soln (100units/ml) SC SCH ×2 (16:47→20:13)
[2018-03-15 20:00] VITALS: BP 116/68
[2018-03-15 21:32] VITALS: BP 116/68
[2018-03-15] MEDS ORDERED: POTASSIUM CHL 20MEQ/100ML 100 ML IV ONE (22:47)
[2018-03-16] MEDS: D5W/SOD CHLO 0.9% 1,000 ML IV SCH (00:04)
[2018-03-16] MEDS: metroNIDAZOLE 500MG/100ML 100 ML IV SCH (00:04)
[2018-03-16] MEDS: KETOROLAC TROMETH 30 MG/ML 1ML VIAL IV PRN ×4 (00:41→20:44)
[2018-03-16] MEDS: ACCU-CHEK COMFORT CURVE STRIP VI SCH ×5 (04:00→22:00)
[2018-03-16] MEDS: InsuLIN REG 1unit/0.01ml Soln (100units/ml) SC SCH ×5 (04:00→22:00)
[2018-03-16 04:55] VITALS: BP 151/88
[2018-03-16 06:18] LABS: Hematocrit 36.3 % (41.0-53.0); Hemoglobin 12.8 g/dL (13.5-17.5); Mean Corpuscular Hemoglobin 30.4 pg (28.0-32.0); Mean Corpuscular Hgb Conc. 35.2 g/dL (32.0-36.0); Mean Corpuscular Volume 86.4 fL (80.0-100.0); Platelet Count (auto) 280 10^3/uL (140-450); Red Cell Distribution Width 12.5 % (11.8-14.3); White Blood Cell 12.7 10^3/uL (4.4-10.8)
[2018-03-16 06:40] LABS: BUN/Creatinine Ratio 11.7; Calcium 7.7 mg/dL (8.5-10.1); Magnesium 2.4 mg/dL (1.6-2.6)
[2018-03-16 06:46] LABS: Basophils % (manual) 0 (0.0-2.0); Blast Cells 0; Eosinophils % (manual) 0 (0-7); Metamyelocytes % 0; Myelocytes % 0; Potassium 2.5 mmol/L (3.5-5.1); Promyelocytes % 0; Reactive Lymphocytes 0
[2018-03-16] MEDS: cefTRIAXone 1GM/10ml IVPUSH 10 ML IV SCH (07:00)
[2018-03-16] MEDS ORDERED: INSULIN NPH Isophane (HUMAN) 1unit/0.01ml Susp(100units/ml) SC ONE (08:00)
[2018-03-16 09:00] VITALS: BP 130/89
[2018-03-16] MEDS: SOD CHL 0.9%/ KCL 40MEQ 1,000 ML IV SCH ×2 (09:25→17:57)
[2018-03-16] MEDS: PANTOPRAZOLE 40 MG/10 ML VIAL IV SCH (09:25)
[2018-03-16] MEDS: POTASSIUM CHL 20 Meq TABLET PO SCH ×2 (09:26→21:59)
[2018-03-16 10:32] LABS: Band Neutrophils % (manual) 3; Lymphocytes % (manual) 28 (10.0-50.0); Monocytes % (manual) 3 (0-12)
[2018-03-16 13:00] VITALS: BP 134/90
[2018-03-16 17:00] VITALS: BP 145/90
[2018-03-16] MEDS: METOCLOPRAMIDE HCL 5MG/ml INJ 2ml VIAL IV PRN (17:58)
[2018-03-16 22:00] VITALS: BP 120/75
[2018-03-17] MEDS: SOD CHL 0.9%/ KCL 40MEQ 1,000 ML IV SCH ×3 (00:55→16:52)
[2018-03-17 05:00] VITALS: BP 123/83
[2018-03-17] MEDS: KETOROLAC TROMETH 30 MG/ML 1ML VIAL IV PRN ×2 (05:28→14:23)
[2018-03-17 06:51] LABS: Calcium 7.6 mg/dL (8.5-10.1); Potassium 3.1 mmol/L (3.5-5.1)
[2018-03-17 06:56] LABS: Hematocrit 35.5 % (41.0-53.0); Hemoglobin 12.6 g/dL (13.5-17.5); Mean Corpuscular Hemoglobin 30.9 pg (28.0-32.0); Mean Corpuscular Hgb Conc. 35.4 g/dL (32.0-36.0); Mean Corpuscular Volume 87.3 fL (80.0-100.0); Platelet Count (auto) 284 10^3/uL (140-450); Red Blood Cells 4.07 10^6/uL (4.5-5.90); Red Cell Distribution Width 12.4 % (11.8-14.3); White Blood Cell 9.9 10^3/uL (4.4-10.8)
[2018-03-17 06:58] LABS: Band Neutrophils % (manual) 0; Basophils % (manual) 0 (0.0-2.0); Blast Cells 0; Eosinophils % (manual) 0 (0-7); Myelocytes % 0; Promyelocytes % 0; Reactive Lymphocytes 0
[2018-03-17] MEDS: ACCU-CHEK COMFORT CURVE STRIP VI SCH ×4 (07:14→22:00)
[2018-03-17] MEDS: InsuLIN REG 1unit/0.01ml Soln (100units/ml) SC SCH ×4 (07:14→22:00)
[2018-03-17 08:00] VITALS: BP 135/94
[2018-03-17] MEDS: METOCLOPRAMIDE HCL 5MG/ml INJ 2ml VIAL IV PRN ×2 (08:54→18:49)
[2018-03-17 09:09] LABS: Lymphocytes % (manual) 37 (10.0-50.0)
[2018-03-17 09:10] LABS: Metamyelocytes % 2; Monocytes % (manual) 16 (0-12)
[2018-03-17] MEDS: PANTOPRAZOLE 40 MG/10 ML VIAL IV SCH (09:48)
[2018-03-17] MEDS: POTASSIUM CHL 20 Meq TABLET PO SCH ×3 (09:48→23:07)
[2018-03-17 13:26] VITALS: BP 133/83
[2018-03-17 17:49] VITALS: BP 121/69
[2018-03-17 22:49] VITALS: BP 122/85
[2018-03-18 05:24] VITALS: BP 133/91
[2018-03-18 06:47] LABS: Hematocrit 36.9 % (41.0-53.0); Hemoglobin 12.9 g/dL (13.5-17.5); Mean Corpuscular Hemoglobin 31.1 pg (28.0-32.0); Mean Corpuscular Volume 88.9 fL (80.0-100.0); Platelet Count (auto) 281 10^3/uL (140-450); Red Blood Cells 4.15 10^6/uL (4.5-5.90); Red Cell Distribution Width 12.5 % (11.8-14.3); White Blood Cell 8.4 10^3/uL (4.4-10.8)
[2018-03-18 06:58] LABS: Basophils % (manual) 0 (0.0-2.0); Blast Cells 0; Myelocytes % 0; Promyelocytes % 0; Reactive Lymphocytes 0
[2018-03-18 07:10] LABS: BUN/Creatinine Ratio 11.4; Calcium 7.8 mg/dL (8.5-10.1); Potassium 3.9 mmol/L (3.5-5.1)
[2018-03-18] MEDS: ACCU-CHEK COMFORT CURVE STRIP VI SCH ×2 (07:11→12:10)
[2018-03-18] MEDS: InsuLIN REG 1unit/0.01ml Soln (100units/ml) SC SCH ×2 (07:12→12:10)
[2018-03-18] MEDS: SOD CHL 0.9%/ KCL 40MEQ 1,000 ML IV SCH ×2 (07:13→10:04)
[2018-03-18] MEDS: KETOROLAC TROMETH 30 MG/ML 1ML VIAL IV PRN (07:13)
[2018-03-18 08:00] VITALS: BP 121/77
[2018-03-18] MEDS: METOCLOPRAMIDE HCL 5MG/ml INJ 2ml VIAL IV PRN (08:21)
[2018-03-18 08:47] LABS: Band Neutrophils % (manual) 3; Eosinophils % (manual) 1 (0-7); Lymphocytes % (manual) 34 (10.0-50.0); Metamyelocytes % 3; Monocytes % (manual) 6 (0-12)
[2018-03-18] MEDS ORDERED: glipiZIDE 5 MG TAB PO SCH (09:30)
[2018-03-18] MEDS ORDERED: metFORMIN HYDROCHLORIDE 500 MG TAB PO SCH (09:30)
[2018-03-18] MEDS: PANTOPRAZOLE 40 MG/10 ML VIAL IV SCH (10:10)
[2018-03-18 12:20] VITALS: BP 128/72
[2018-03-18 13:09] VITALS: BP 128/72
== END 2018-03-18 13:50 | disposition home or self-care (01) | DRG 241 ==
LOC: EDBD 22:07 → ER 22:11 → TELE 22:12 → TELE-CENTR 03-15 08:28
PROVIDERS: ADMIT Nurse Practitioner Family; ATTEND Internal Medicine
DX: K29.70 Gastritis, unspecified, without bleeding (principal); E11.10 Type 2 diabetes mellitus with ketoacidosis without coma; R65.10 Systemic inflammatory response syndrome (SIRS) of non-infectious origin without acute organ dysfunction; K31.84 Gastroparesis; E11.43 Type 2 diabetes mellitus with diabetic autonomic (poly)neuropathy; E87.1 Hypo-osmolality and hyponatremia; E86.0 Dehydration; E87.6 Hypokalemia; K21.9 Gastro-esophageal reflux disease without esophagitis; D63.8 Anemia in other chronic diseases classified elsewhere; F32.9 Major depressive disorder, single episode, unspecified; I10 Essential (primary) hypertension; F41.9 Anxiety disorder, unspecified; D72.829 Elevated white blood cell count, unspecified; Z83.3 Family history of diabetes mellitus; Z87.11 Personal history of peptic ulcer disease; Z87.442 Personal history of urinary calculi; Z90.49 Acquired absence of other specified parts of digestive tract
CPT/HCPCS: 36415; 74176; 80048; 80053; 80307; 81001; 82010; 82150; 82962; 83036; 83690; 83735; 85007; 85027; 85610; 85730; 87040; 93005; 94761; 96361; 96374; 96375; 99291; C9113; J0696; J1815; J1885; J2405; J3480; J3490; J7042